=== PATIENT | female | born 1965 | race American Indian/Alaskan Native ===

== ENCOUNTER 2019-03-21 20:46 | Emergency (ER) | payer OTHER ==
--- NOTE | 2019-03-21 20:56 | Emergency Department Report ---
Blank Doc - Documentation Documentation: This is a 53-year-old female that presents with left wrist pain. Patient is p ost-op from carpel tunnel surgery that was today. This initial assessment/diagnostic orders/clinical plan/treatment(s) is/are subject to change based on patient's health status, clinical progression and re- assessment by fellow clinical providers in the ED. Further treatment and workup at subsequent clinical providers discretion. Patient/guardians urged not to elope from the ED as their condition may be serious if not clinically assessed and managed. Initial orders include: 1- Patient sent to MAIN ED for further evaluation and treatment
[2019-03-21] MEDS ORDERED: ZOFRAN ODT PO ONE (21:31)
[2019-03-21] MEDS ORDERED: PERCOCET 5/325 PO ONE (21:31)
[2019-03-21] MEDS ORDERED: TORADOL IM ONE (21:31)
--- NOTE | 2019-03-21 22:47 | Emergency Department Report ---
Upper Extremity - [facility] Chief Complaint: Extremity Injury, Upper Stated Complaint: LEFT WRIST PAIN Time Seen by Provider: 03/21/19 20:54 Upper Extremity: Left Forearm (left forearm), Left Wrist (left s/p carpal tunnel release surgery 7 hours ago) Occurred When: Today (7 hours ago) Mechanism: Other (Carpal tunnel release surgery 7 hours ago) Severity: severe Symptoms: Yes Pain with Movement, Yes Limited Range of Movement, Yes Numbness, Yes Laceration or Abrasion, No Deformity, No Weakness, No Swelling, No Bruising/Ecchymosis Other History: Patient is a 53-year-old -[place] female with a history of chronic carpal tunnel syndrome and is s/p left carpal tunnel release surgery 7 hours ago who presents to the ED with complaint of worsening left wrist pain that radiates to the left forearm for the last 7 hours. Patient states that she has been taking Lorane 5 mg-325 mg tablets at home with no relief. Patient states that she contacted her surgeon who told her to follow up with her in 3 days' time. Patient states that the pain is worse especially with palpation or active range of motion of the left wrist or forearm. Patient denies fever, chills, nausea, vomiting, left wrist weakness, chest pain or shortness of breath. ED Review of Systems ROS: Stated complaint: LEFT WRIST PAIN Other details as noted in HPI Constitutional: denies: chills, fever Eyes: denies: eye pain, eye discharge, vision change ENT: denies: ear pain, throat pain Respiratory: denies: cough, shortness of breath, wheezing Cardiovascular: denies: chest pain, palpitations Endocrine: no symptoms reported Gastrointestinal: denies: abdominal pain, nausea, diarrhea Genitourinary: denies: urgency, dysuria, discharge Musculoskeletal: arthralgia (left wrist and forearm pain due to surgery of left wrist joint). denies: back pain, joint swelling Skin: denies: rash, lesions Neurological: denies: headache, weakness, paresthesias Psychiatric: denies: anxiety, depression Hematological/Lymphatic: denies: easy bleeding, easy bruising ED Past Medical Hx - Past Medical History Previous Medical History?: Yes Hx Hypertension: Yes - Surgical History Past Surgical History?: Yes Hx Appendectomy: Yes Additional Surgical History: CARPAL TUNNEL LEFT HAND, RIGHT ROTATOR CUFF, C- SECTION - Social History Smoking Status: Never Smoker Substance Use Type: None - Medications Home Medications: Home Medications Medication Instructions Recorded Confirmed Last Taken Type Gabapentin [Neurontin] 300 mg PO Q8HR PRN #30 capsule 03/21/19 Unknown Rx Ketorolac [Toradol] 10 mg PO Q8H PRN #20 tablet 03/21/19 Unknown Rx Upper Extremity Exam - Exam General: Vital signs noted. No distress. Alert and acting appropriately. Head and Torso: No HEENT Abnormality, No Neck Tenderness, No Chest/Lungs A bnormality, No Abdominal Tenderness, No Back Tenderness Shoulder Exam: Yes Normal Range of Motion in Shoulder, No Shoulder Tenderness, No Clavicle Tenderness, No Shoulder Deformity, No AC Joint Tenderness Arm Exam: No Arm/Humerus Tenderness, No Arm Deformity Elbow: Yes Normal Range of Motion in Elbow, No Elbow Tenderness, No Elbow Deformity Forearm: Yes Forearm Tenderness, Yes Pain with Pronation, Yes Pain with Supination, No Forearm Deformity Wrist: Yes Wrist Tenderness, Yes Snuffbox Tenderness, Yes Pain with Axial Thumb Compression, No Normal ROM in Wrist, No Wrist Deformity Hand: Yes Hand Tenderness, Yes Normal ROM in Digit(s), No Hand Deformity, No Digit Tenderness, No Digit(s) Deformity, No Tendon Dysfunction CMS Exam: Yes Normal Distal Pulses, Yes Normal Capillary Refill, Yes Normal Distal Sensation, No Broken Skin Front/Back of Body, Lg (Color): 1 - Palpable tenderness of the left wrist and forearm Hand L/R Front: 1 - severe left wrist tenderness Hand L/R Back: 1 - Severe left wrist and forearm tenderness ED Course Vital Signs 03/21/19 20:55 Temperature 98.4 F Pulse Rate 90 Respiratory 14 Rate Blood Pressure 154/96 O2 Sat by Pulse 99 Oximetry - Reevaluation(s) Reevaluation #1: 03/21/19 22:49 This is a 53-year-old female who presented to the ED with worsening left wrist and left forearm pain after left carpal tunnel release surgery 7 hours ago. In the ED, patient is alert and oriented 3 and is not in distress but appears to be in pain. Patient was treated in the ED with pain medications and on reevaluation, patient's pain is well controlled. Patient was discharged home on medications for pain and advised to follow-up with her primary care physician on the orthopedic surgeon who performed the surgery, in 3-5 days for reevaluation. Patient was advised to return to the ED immediately if symptoms get worse. ED Medical Decision Making - Medical Decision Making This is a 53-year-old female who presented to the ED with worsening left wrist and left forearm pain after left carpal tunnel release surgery 7 hours ago. In the ED, patient is alert and oriented 3 and is not in distress but appears to be in pain. Patient was treated in the ED with pain medications and on reevalu ation, patient's pain is well controlled. Patient was discharged home on medications for pain and advised to follow-up with her primary care physician on the orthopedic surgeon who performed the surgery, in 3-5 days for reevaluation. Patient was advised to return to the ED immediately if symptoms get worse. - Differential Diagnosis Left wrist pain; Left forearm pain; Surgical site pain Critical care attestation.: If time is entered above; I have spent that time in minutes in the direct care of this critically ill patient, excluding procedure time. ED Disposition Clinical Impression: Acute pain of left wrist, Carpal tunnel syndrome on left Disposition: [id number] TO HOME OR SELFCARE Is pt being admited?: No Does the pt Need Aspirin: No Condition: Stable Instructions: Carpal Tunnel Syndrome (ED) Additional Instructions: Take medications with food, drink plenty of fluids and follow-up with your primary care physician or orthopedic surgeon in 3-5 days for reevaluation. Return to the ED immediately if symptoms get worse. Prescriptions: Gabapentin [Neurontin] 300 mg PO Q8HR PRN #30 capsule PRN Reason: Pain , Severe (7-10) Ketorolac [Toradol] 10 mg PO Q8H PRN #20 tablet PRN Reason: Pain Referrals: [facility] [Outside] - 3-5 Days Time of Disposition: 22:53 Print Language: [id number]
[2019-03-21 23:11] VITALS: BP 160/96
== END 2019-03-21 23:10 | disposition home or self-care (01) ==
LOC: ED 20:46
DX: G56.02 Carpal tunnel syndrome, left upper limb (principal); I10 Essential (primary) hypertension; Z90.49 Acquired absence of other specified parts of digestive tract; Z98.890 Other specified postprocedural states; Z79.899 Other long term (current) drug therapy
CPT/HCPCS: 96372; 99282; J1885; Q0162

== ENCOUNTER 2021-01-23 11:08 | Emergency (ER) | payer OTHER ==
[2021-01-23 11:55] VITALS: BP 149/92
== END 2021-01-23 15:48 | disposition left against medical advice (07) ==
LOC: ED 11:08
DX: R51.9 Headache, unspecified (principal); Z53.21 Procedure and treatment not carried out due to patient leaving prior to being seen by health care provider